=== PATIENT | female | born 1980 | race Caucasian/White ===

== ENCOUNTER 2019-05-13 15:11 | Emergency (ER) | payer MEDICAID ==
[~2019-05-13] VITALS: Ht 172.7 cm; Wt 57.0 kg
[2019-05-13] MEDS ORDERED: IBUPROFEN 600MG TABLET PO ONE (17:45)
[2019-05-13 17:48] VITALS: BP 100/53
== END 2019-05-13 19:00 | disposition home or self-care (01) ==
LOC: ER 15:11
DX: S93.402A Sprain of unspecified ligament of left ankle, initial encounter (principal); J45.909 Unspecified asthma, uncomplicated; F17.200 Nicotine dependence, unspecified, uncomplicated; W18.39XA Other fall on same level, initial encounter; Y93.89 Activity, other specified; Y92.89 Other specified places as the place of occurrence of the external cause; Y99.8 Other external cause status
CPT/HCPCS: 73610; 73630; 99283